=== PATIENT | female | born 1955 | race Caucasian/White ===

== ENCOUNTER 2020-05-27 04:59 | Day surgery (SDC) | payer OTHER, BC ==
[2020-05-22 15:33] VITALS: BMI 21.7
[2020-05-27 09:04] VITALS: TEMP 97.7
[2020-05-27 09:54] VITALS: BP 104/55; PULSE 62
== END 2020-05-27 10:05 | disposition home or self-care (01) ==
LOC: JASU-ENDO 04:59
PROVIDERS: ATTEND Internal Medicine Gastroenterology
PROC: 0DJD8ZZ Inspection of Lower Intestinal Tract, Via Natural or Artificial Opening Endoscopic (ICD-10-PCS; principal; 2020-05-27 08:00)
DX: Z12.11 Encounter for screening for malignant neoplasm of colon (principal); K64.4 Residual hemorrhoidal skin tags

== ENCOUNTER → 2023-06-17 | Day surgery (SDC) | payer OTHER, BC | END | disposition home or self-care (01) | LOC: FRADUS-SUR 12:24 | PROVIDERS: ATTEND Physician Assistant | PROC: 0HBT3ZX Excision of Right Breast, Percutaneous Approach, Diagnostic (ICD-10-PCS; principal; 2023-06-17) | DX: C50.911 Malignant neoplasm of unspecified site of right female breast (principal); N63.10 Unspecified lump in the right breast, unspecified quadrant | CPT/HCPCS: 19083; 77065-TC; 87899; 88305-TC; 88342-TC; A4648 ==